=== PATIENT | male | born 1965 | race Caucasian/White ===

== ENCOUNTER 2019-05-18 15:43 | Observation (INO) ==
[2019-05-18] MEDS ORDERED: Naloxone 0.4 MG/ML INJ IVP PRN (17:18)
[2019-05-19] MEDS: Melatonin 3 MG TABLET PO SCH ×2 (00:01→20:34)
[2019-05-19 05:52] LABS: Basophils % 0.5 %; Eosinophils # 0.1 K/mcL (0.0-0.6); Eosinophils % 0.8 %; Hematocrit 42.4 % (37.5-50.1); Hemoglobin 13.5 g/dL (12.9-16.9); Immature Granulocytes % 0.4 % (0-4); Lymphocytes # 1.9 K/mcL (0.6-4.6); Lymphocytes % 25.1 %; Mean Corpuscular HGB Conc 31.8 g/dL (31.6-35.5); Mean Corpuscular Hemoglobin 29.7 pg (28.0-33.3); Mean Corpuscular Volume 93.2 fL (83.0-100.0); Monocytes # 0.7 K/mcL (0.0-1.3); Monocytes % 8.7 %; Platelet Count 347 K/mcL (140-400); Red Blood Count 4.55 M/mcL (4.19-5.50); Red Cell Distribution Width 12.4 % (11.5-14.5); Segmented Neutrophils % 64.5 %; White Blood Count 7.7 K/mcL (4.3-11.1)
[2019-05-19] MEDS ORDERED: Nitroglycerin 0.4 MG TAB.SUBL SL PRN (07:49)
[2019-05-19] MEDS ORDERED: *HR* Labetalol 20 MG/4 ML SYRINGE IVP PRN ×2 (07:50→12:35)
[2019-05-19 07:58] LABS: BUN/Creatinine Ratio 17 (6-26); Blood Urea Nitrogen 18 mg/dL (6-20); Calcium 9.4 mg/dL (8.6-10.3); Carbon Dioxide 23 mEq/L (23-29); Chloride 106 mEq/L (98-107); Glucose 94 mg/dL (70-105); Osmolality,Calculated 290 (280-300); Potassium 3.6 mEq/L (3.5-5.1); Sodium 139 mEq/L (136-145); eGFR For African Americans > 60 (> 60); eGFR For Non-African Americans > 60 (> 60)
[2019-05-19] MEDS: lisinopriL 20 MG TABLET PO SCH (08:08)
[2019-05-19] MEDS: Metoprolol XL (24 HR) Succ 50 MG TAB.ER.24H PO SCH (08:08)
[2019-05-19 08:51] LABS: Alanine Aminotransferase 59 Units/L (7-52); Albumin 4.3 g/dL (3.5-5.7); Albumin/Globulin Ratio 1.6 (1.1-2.2); Alkaline Phosphatase 63 Units/L (34-104); Aspartate Amino Transferase 32 Units/L (13-39); BUN/Creatinine Ratio 17 (6-26); Blood Urea Nitrogen 17 mg/dL (6-20); Calcium 9.7 mg/dL (8.6-10.3); Carbon Dioxide 24 mEq/L (23-29); Chloride 103 mEq/L (98-107); Globulin 2.7 g/dL (2.4-3.5); Glucose 134 mg/dL (70-105); Magnesium 1.9 mg/dL (1.6-2.6); Osmolality,Calculated 288 (280-300); Phosphorous 3.1 mg/dL (2.7-4.5); Potassium 3.8 mEq/L (3.5-5.1); Sodium 137 mEq/L (136-145); eGFR For African Americans > 60 (> 60); eGFR For Non-African Americans > 60 (> 60)
[2019-05-19] MEDS: Furosemide 40 MG/4 ML VIAL IVP SCH (12:30)
[2019-05-19] MEDS: QUEtiapine Fumarate 25 MG TABLET PO PRN ×2 (14:53→23:41)
[2019-05-19] MEDS ORDERED: *HR* LORazepam 2 MG/ML VIAL IM PRN (14:59)
[2019-05-19] MEDS ORDERED: MOM Conc 10 ML UD.LIQ PO PRN ×2 (14:59)
[2019-05-19] MEDS ORDERED: ChlorproMAZINE 25 MG/ML AMPUL IM PRN (14:59)
[2019-05-19] MEDS ORDERED: Acetaminophen 325 MG TABLET PO PRN (14:59)
[2019-05-19] MEDS ORDERED: *HR* LORazepam 1 MG TABLET PO PRN (14:59)
[2019-05-19] MEDS ORDERED: Mag Hydrox/Al Hydrox/Simeth 30 ML UDC PO PRN (16:00)
[2019-05-19] MEDS: cloNIDine HCL 0.1 MG TABLET PO SCH ×2 (16:06→23:16)
[2019-05-19] MEDS: *HR* Heparin 5,000 UNIT/ML VIAL SQ SCH (18:17)
[2019-05-20] MEDS: cloNIDine HCL 0.1 MG TABLET PO SCH (06:30)
[2019-05-20] MEDS: *HR* Heparin 5,000 UNIT/ML VIAL SQ SCH (06:30)
[2019-05-20] MEDS ORDERED: ARIPiprazole 10 MG TABLET PO SCH (09:00)
[2019-05-20] MEDS: Metoprolol XL (24 HR) Succ 50 MG TAB.ER.24H PO SCH (09:57)
[2019-05-20] MEDS: Furosemide 40 MG/4 ML VIAL IVP SCH (09:57)
[2019-05-20] MEDS: lisinopriL 20 MG TABLET PO SCH (09:57)
[2019-05-20 10:40] VITALS: BP 125/77
== END 2019-05-20 12:52 ==
LOC: SUATTDRO 17:13 → 2ANU 17:13 → INTOOBSV 17:13
PROVIDERS: ADMIT Internal Medicine; ATTEND Internal Medicine